=== PATIENT | male | born 1955 | race Caucasian/White ===

== ENCOUNTER → 2016-05-20 | Day surgery (SDC) | payer BC ==
[2016-05-07 15:06] VITALS: BMI 27.0
[2016-05-14 12:08] VITALS: Ht 181.6 cm; Wt 92.1 kg
--- NOTE | 2016-05-14 12:21 | PAT Medication Instructions ---
Service Date May 14, 2016. Current Home Medication List Aspirin (Aspirin Chewable), 81 MG PO QAM Atorvastatin (Lipitor), 10 MG PO HS Coenzyme Q10 (Ubidecarenone) (Coq10), 1 CAP PO QAM Flecainide (Tambocor), 100 MG PO QPM Metoprolol Succ (Toprol Xl) (Toprol-Xl), 25 MG PO BID Ranitidine Hcl (Zantac 150 Maximum Streng), 1 TAB PO DAILY PRN for Indigestion Medication Instructions For Your Scheduled Surgery - Hold the following medications 1 week prior to surgery: Coenzyme Q10 (Ubidecarenone) (Coq10), 1 CAP PO QAM - Take the following medications the morning of surgery with a sip of water OTHERWISE NOTHING TO EAT OR DRINK AFTER MIDNIGHT: Metoprolol Succ (Toprol Xl) (Toprol-Xl), 25 MG PO BID Ranitidine Hcl (Zantac 150 Maximum Streng), 1 TAB PO DAILY PRN for Indigestion - Take the following medications as scheduled the night before surgery: Flecainide (Tambocor), 100 MG PO QPM Atorvastatin (Lipitor), 10 MG PO HS Metoprolol Succ (Toprol Xl) (Toprol-Xl), 25 MG PO BID Aspirin (Aspirin Chewable), 81 MG PO QAM If you have any questions please call us at [phone] (Iva Laboy PA-C ) or [phone] or [phone]
[2016-05-14 13:26] LABS: HEMATOCRIT 44.9 % (42-52); MEAN CELL VOLUME 93.2 fL (80-100); MEAN CORPUSCULAR HEMOGLOBIN 33.4 pg (25-34); MEAN CORPUSCULAR HGB CONC 35.9 g/dl (32-36); MEAN PLATELET VOLUME 10.3 fL (7.4-10.4); PLATELET COUNT 193 K/uL (130-400); RED BLOOD COUNT 4.82 M/uL (4.7-6.1); WHITE BLOOD COUNT 5.46 K/uL (4.8-10.8)
[2016-05-14 14:08] LABS: BUN/CREATININE RATIO 12.2 (10-20); CALCIUM 9.5 mg/dl (8.5-10.1); CREATININE 1.1 mg/dl (0.60-1.40); POTASSIUM 4.6 mmol/L (3.5-5.1)
[2016-05-14 14:10] LABS: ALB/GLOB RATIO 1.2 (0.9-2)
[~2016-05-20] VITALS: Ht 181.6 cm; Wt 92.1 kg
[~2016-05-20] MED LIST: ASPCH81X PO; ATOR10TA88 PO; ATROPINE SULFATE 0.1 MG/ML 5ML SYR IV PRN; BUPIVACAINE 0.5 % 5 MG/1 ML MPF 30ML VIAL ONE; CEFAZOLIN 2000 MG/60 ML D5W IV SCH; COEN1CAP7 PO; DEXAMETHASONE SOD INJ 4 MG/ML VIAL IV PRN; EpHEDrine SULFATE INJ 50 MG/ML AMP IV PRN; EpINEphrine INJ 1MG/ML AMP 1 MG/ML AMP ONE; FENTANYL CITRATE INJ 50 MCG/1 ML 2 ML VIAL IV PRN; FENTANYL CITRATE INJ 50 MCG/1 ML 2 ML VIAL ONE; FLEC100T21 PO; HYDR-5688 PO; KETOROLAC TROMETHAMINE 30 MG/ML VIAL IV. PRN; LABETALOL HCL IV 5 MG/ML 20ML IV PRN; LACTATED RINGER'S 1000ML 1,000 ML IV SCH; LIDOCAINE HCL 2% 2 ML VIAL (20MG/ML) ONE; METO25TA3 PO; METOCLOPRAMIDE HCL INJ 5 MG/ML 2 ML VIAL IV PRN; MIDAZOLAM HCL 1 MG/ML 2ML VIAL ONE; MoRPHine SULFATE 10 MG/ML CARP/VIAL IV PRN; ONDANSETRON INJ 2 MG/ML 2 ML VIAL IV PRN; ONDANSETRON INJ 2 MG/ML 2 ML VIAL ONE; OXYCODONE/ACETAMINOPHEN 5-325 TAB PO PRN; PHENYLEPHRINE 100MCG/ML 5ML SYR IV PRN; PROPOFOL IV EMULSION 10 MG/ML 20 ML VIAL IV ONE; RANITAB6 PO; ROPIVACAINE 0.5% 5 MG/ML 30 ML VIAL ONE; SODIUM CHLORIDE 0.9% 1000ML 1,000 ML IV SCH
--- NOTE | 2016-05-20 06:42 | History & Physical Bridge - [place] ---
H&P Re-Evaluation Bridge Note: I have examined the patient, reviewed the History & Physical and in the interval since the performance of the History & Physical I have noted the following changes of clinical significance: No changes noted
[2016-05-20] MEDS: KETOROLAC TROMETHAMINE 30 MG/ML VIAL ONE ×2 (07:44→07:58)
--- NOTE | 2016-05-20 07:59 | [facility] Post Operative Brief Note ---
Immediate Operative Summary Operative Date May 20, 2016. Pre-Operative Diagnosis Right Knee Medial Meniscus Tear, Meniscal Cyst Post-Operative Diagnosis Same Procedure(s) Performed Right Knee Arthroscopy, Partial Medial Meniscectomy, Surgeon Dr. Wayne Sherwood Mesh Cutter Surgeon(s) Merrill Mayo PA-C Estimated Blood Loss 0 Findings ABOVE Specimens NONE Anesthesia LMA Complication(s) None Disposition Recovery Room / PACU
--- NOTE | 2016-05-20 08:13 | Discharge Instructions-SurgCtr ---
Discharge Instructions Visit Reason for Visit: Right Knee Medial Meniscus Tear, Meniscal Cyst Discharge Goals Goal(s): Decrease discomfort, Improve function Activity Recommendations Activity Limitations: as noted below Lifting Limitations: gradually increase as tolerated Exercise/Sports Limitations: until after follow-up appointment Weightbearing Status: Right weightbearing (as tolerated) Anesthesia . Post Anesthesia Instructions: If you have had General Anesthesia or IV Sedation: * Do not drive today. * Resume driving when surgeon permits. * Do not make important decisions or sign legal documents today. * Call surgeon for: 1. Temperature elevations greater than 101 degrees F. 2. Uncontrollable pain. 3. Excessive bleeding. 4. Persistent nausea and vomiting. 5. Medication intolerance (nausea, vomiting or rash). * For nausea and vomiting use only clear liquids such as: tea, soda, bouillon until nausea subsides, then gradually increase diet as tolerated. * If you have any concerns or questions, call your surgeon's office. If physician is unavailable and it is an emergency, call 911 or go to the nearest emergency room. . Diet Recommendations Home Diet: resume previous diet Procedures Procedures Performed: Right Knee Arthroscopy, Partial Medial Meniscectomy, Pending Studies Studies pending at discharge: no Medical Emergencies . Who to Call and When: Medical Emergencies: If at any time you feel your situation is an emergency, please call 911 immediately. . Non-Emergent Contact Non-Emergency issues call your: Primary Care Provider . . "Provider Documentation" section prepared by Thomas Mayo.
--- NOTE | 2016-05-20 08:28 | OPERATIVE REPORT ---
DATE OF OPERATION: 05/20/2016 PREOPERATIVE DIAGNOSIS: Medial meniscus tear with an associated parameniscal cysts, right knee. POSTOPERATIVE DIAGNOSIS: Same. PROCEDURE: Right knee arthroscopy, partial medial meniscectomy. SURGEON: Dr. Sherwood. VAMP STRAP IRONER: Thomas Mayo PA-C. ANESTHESIOLOGIST: Dr. Nicolas. ANESTHESIA: General LMA. DRAINS: None. COMPLICATIONS: None. CONDITION: The patient tolerated the procedure well and returned to the recovery room in apparent satisfactory condition. INDICATIONS FOR SURGERY: Carlos is a 61-year-old male who has had a meniscus tear and associated parameniscal cysts. The cysts are very small. I went over treatment options and he elected to go ahead with knee arthroscopy and address the meniscal pathology and thought this would probably take care of the cysts without having to actually excise them. We were ready to do it, if we had to though. PROCEDURE: The patient was taken to the OR at which time he was placed supine on the operating table and put to sleep by the anesthesia department. Examination of his knee was performed. Ligamentous lawler, is stable. Went ahead and prepped and draped in usual sterile fashion. We began arthroscopic examination in the anteromedial and anterolateral portals. We found a flap tear of the posterior horn of the medial meniscus. You could see where it was communicating with the cyst area. We came in with upbiting scissors and full radius resector and trimmed it back to a stable rim. The articular surface was in good shape. As we trimmed this out, we decompressed the meniscus from inside out. We did not think we had to actually excise it. I think this would be the communication between the joint and the meniscal cysts. ACL, lateral compartment and patellofemoral joint were all inspected. We found a plica band superior medial in the suprapatellar joint. This was removed. Knee then was copiously irrigated. All cannulas were removed. Portals were closed with 4-0 nylon sutures. 30 mL of ropivacaine, 1 mL epinephrine was placed in the knee joint. Placed a sterile dressing of Xeroform, 4 x 4, ABD, Sof-Rol, and Eleno bandage and returned back to recovery room in apparent satisfactory condition. SURGICAL FINDINGS: Include a complex flap tear of the posterior horn of the medial meniscus associated with the parameniscal cysts that were small. I attest to the content of the Intraoperative Record and any orders documented therein. Any exceptio ns are noted below.
--- NOTE | 2016-05-20 08:53 | Anesthesia Progress Nt - [facility] ---
Anesthesia Post Op Note Date & Time May 20, 2016 at 08:53 Vital Signs Pain Intensity: 2 Vital Signs Past 12 Hours Date Time Temp Pulse Resp B/P Pulse Ox O2 Delivery O2 Flow Rate FiO2 05/20/16 08:46 36.4 57 16 129/75 96 05/20/16 08:46 36.5 57 16 129/75 97 Room Air 05/20/16 08:33 56 9 05/20/16 08:33 56 9 124/70 100 05/20/16 08:29 109/73 05/20/16 08:28 60 11 96 05/20/16 08:28 59 11 05/20/16 08:24 104/69 05/20/16 08:23 59 11 100 05/20/16 08:23 60 11 05/20/16 08:18 62 14 05/20/16 08:18 63 14 106/72 100 05/20/16 08:13 58 7 05/20/16 08:13 58 7 110/70 100 05/20/16 08:08 36.3 57 16 128/79 100 Mask 05/20/16 08:08 55 128/79 100 05/20/16 08:08 55 05/20/16 06:27 36.4 50 16 121/76 97 Room Air Notes Mental Status: alert / awake / arousable, participated in evaluation Pt Amnestic to Procedure: Yes Nausea / Vomiting: adequately controlled Pain: adequately controlled Airway Patency, RR, SpO2: stable & adequate BP & HR: stable & adequate Hydration State: stable & adequate Anesthetic Complications: no major complications apparent
[2016-05-20 08:55] VITALS: TEMP 36.4
[2016-05-20 09:50] VITALS: BP 100/66; PULSE 55; O2SAT 95
== END | disposition home or self-care (01) ==
LOC: X.SURG 06:05
PROVIDERS: ATTEND Orthopaedic Surgery
DX: M23.021 Cystic meniscus, posterior horn of medial meniscus, right knee (principal); M67.51 Plica syndrome, right knee; Z79.899 Other long term (current) drug therapy